=== PATIENT | female | born 1960 ===

== ENCOUNTER 2022-07-21 16:55 | Emergency (ER) | payer SELFPAY ==
[~2022-07-21] VITALS: Ht 162.6 cm; Wt 69.0 kg
[2022-07-21] MEDS ORDERED: CYCL-837 PO (22:12)
[2022-07-21] MEDS ORDERED: ACET-1158 PO (23:11)
[2022-07-21 23:12] VITALS: BP 139/85
== END 2022-07-21 23:12 | disposition home or self-care (01) ==
LOC: EDBD 16:55 → ER 16:55
DX: S16.1XXA Strain of muscle, fascia and tendon at neck level, initial encounter (principal); S39.012A Strain of muscle, fascia and tendon of lower back, initial encounter; S80.01XA Contusion of right knee, initial encounter; S93.401A Sprain of unspecified ligament of right ankle, initial encounter; R51.9 Headache, unspecified; Z79.899 Other long term (current) drug therapy; V43.62XA Car passenger injured in collision with other type car in traffic accident, initial encounter; Y93.89 Activity, other specified; Y92.410 Unspecified street and highway as the place of occurrence of the external cause; Y99.8 Other external cause status
CPT/HCPCS: 70450; 72125; 72131; 73562; 73610